=== PATIENT | female | born 1940 | race Caucasian/White ===

== ENCOUNTER 2016-11-28 06:06 | Emergency (ER) | payer MEDICARE ==
[~2016-11-28] VITALS: Ht 160 cm; Wt 68.0 kg
[2016-11-28] MEDS ORDERED: BACITRACIN-POLYMYXIN B TOPICAL OINT UD TOP ONE (10:24)
[2016-11-28] MEDS ORDERED: TETANUS-DIPTH-ACEL PERTUSSIS 0.5ML SYRG IM ONE (10:30)
[2016-11-28 10:40] VITALS: BP 139/79
== END 2016-11-28 10:42 | disposition home or self-care (01) ==
LOC: ER 06:08
DX: S01.21XA Laceration without foreign body of nose, initial encounter (principal); Z23 Encounter for immunization; I10 Essential (primary) hypertension; W22.8XXA Striking against or struck by other objects, initial encounter; Y93.89 Activity, other specified; Y99.8 Other external cause status; Y92.89 Other specified places as the place of occurrence of the external cause
CPT/HCPCS: 90471; 90715; 93005